=== PATIENT | male | born 1955 | race Caucasian/White ===

== ENCOUNTER 2022-01-03 10:24 | Outpatient (CLI) | payer BC, SELFPAY ==
[2022-01-03 21:54] LABS: Albumin* 4.5 g/dL (3.3-5.0)
[2022-01-03 21:55] LABS: Chloride* 104 mmol/L (96-114); Potassium* 4.5 mmol/L (3.6-5.1); Sodium* 139 mmol/L (135-149)
[2022-01-03 21:57] LABS: Alanine Aminotransferase* 28 U/L (4-50); Alkaline Phosphatase* 62 U/L (40-150); Aspartate Amino Transferase* 27 U/L (12-35); Bilirubin Total* 0.5 mg/dL (0.1-1.5); Blood Urea Nitrogen* 18 mg/dL (7-30); Carbon Dioxide* 27 mmol/L (20-32); Cholesterol* 192 mg/dL (90-199); Creatinine* 0.8 mg/dL (0.5-1.5); Estimated Glomerular Filt Rate 98 ml/min; Glucose* 105 mg/dL (60-115); Total Protein* 7.4 g/dL (6.0-8.3); Triglycerides* 81 mg/dL (40-149)
[2022-01-03 21:58] LABS: Calcium* 9.3 mg/dL (8.4-10.6); HDL Cholesterol* 55 mg/dL (>=40); LDL Cholesterol Calculated 121 mg/dL (<100)
[2022-01-03 22:20] LABS: Creatinine Urine 131.6 mg/dL
[2022-01-03 22:24] LABS: Microalbumin Creatinine Ratio 0 mg/g (0-30); Microalbumin Urine < 1 mg/dL
== END 2022-01-03 10:25 | disposition home or self-care (01) ==
PROVIDERS: PCP Family Medicine; Visit Provider Family Medicine
DX: E78.5 Hyperlipidemia, unspecified (principal); N52.9 Male erectile dysfunction, unspecified; I10 Essential (primary) hypertension
CPT/HCPCS: 80053; 80061; 82043; 82570; 83735

== ENCOUNTER 2023-02-23 07:50 | Outpatient (CLI) | payer BC, SELFPAY | END 2023-02-23 07:51 | disposition home or self-care (01) | PROVIDERS: Visit Provider Family Medicine | DX: Z00.00 Encounter for general adult medical examination without abnormal findings (principal); E78.5 Hyperlipidemia, unspecified; I10 Essential (primary) hypertension; N52.8 Other male erectile dysfunction | CPT/HCPCS: 80053; 80061; 82043; 82570; 84153 ==

== ENCOUNTER 2024-02-29 13:06 | Outpatient (CLI) | payer BC, SELFPAY | END 2024-02-29 13:07 | disposition home or self-care (01) | PROVIDERS: PCP Family Medicine; Visit Provider Family Medicine | DX: Z00.00 Encounter for general adult medical examination without abnormal findings (principal); E78.5 Hyperlipidemia, unspecified; I10 Essential (primary) hypertension; Z12.5 Encounter for screening for malignant neoplasm of prostate; Z11.59 Encounter for screening for other viral diseases; Z13.1 Encounter for screening for diabetes mellitus | CPT/HCPCS: 80053; 80061; 82043; 82570; 83880; 86803; G0103 ==

== ENCOUNTER 2024-03-05 10:34 | Outpatient (CLI) | payer BC, SELFPAY ==
[2024-03-05 11:24] VITALS: BP 122/78; PULSE 95; RESP 18
--- NOTE | 2024-03-05 11:33 | W.PM.STED ---
Stress Test Note Date Date of test: 03/05/24 Providers Primary care provider: Karen Hernández Stress test physician: Serjio Santos Stress Test Note Stress test ordered: Exercise Stress Test Indication for test: Shortness of breath Results discussion: This pleasant 60-year-old gentleman presents for the above test, after discussion the risks benefits side effects he would proceed, pretest EKG shows atrial fibrillation with a controlled ventricular rate of 74 and a blood pressure [address] in [address] No acute [address] wave changes are noted. Cardiac stress test medical history form is reviewed. Patient is exercised for a total time of 6 minutes 2nd and achieved a metabolic equivalent of 7.1 Mets maximum heart rate was 169 with a target predicted of 131%. Conditioning was felt to be moderate review of the test shows no specific evidence of ST wave changes suggestive of ischemia, he had some mild fatigue and shortness of breath but otherwise was normal. Impression: Negative electrographic portion of stress test, conditioning was felt to be moderate, patient is in atrial fibrillation Follow up suggested: Clinical correlation with this test will be needed, Patient will follow-up with Cardiology, he has an echo scheduled. If further testing is needed I would recommend an exercise Myoview test. Patient left this testing facility in good condition.
== END 2024-03-05 10:35 | disposition home or self-care (01) ==
PROVIDERS: PCP Family Medicine; Visit Provider Family Medicine
DX: R06.02 Shortness of breath (principal); I48.91 Unspecified atrial fibrillation
CPT/HCPCS: 93016; 93017

== ENCOUNTER 2024-03-08 10:39 | Outpatient (CLI) | payer BC, SELFPAY | END 2024-03-08 10:40 | disposition home or self-care (01) | LOC: RAD 10:40 | PROVIDERS: PCP Family Medicine; Visit Provider Family Medicine | DX: I48.91 Unspecified atrial fibrillation (principal); R60.0 Localized edema; R06.02 Shortness of breath; R79.89 Other specified abnormal findings of blood chemistry | CPT/HCPCS: 93306 ==

== ENCOUNTER 2024-03-26 10:28 | Outpatient (CLI) | payer BC, SELFPAY ==
--- NOTE | 2024-03-26 10:45 | CRLHL7_ITS ---
For Patients: As a result of the Cures Act, medical imaging exams and procedure reports are released immediately into your electronic medical record. You may view this report before your referring provider. If you have questions, please contact your health care provider. Examination: US abdominal aorta Indication: Abdominal aortic aneurysm screening. Technique: Dhillon scale and color Doppler images of the aorta and common iliac arteries are obtained. Comparison: None Findings: Proximal aorta: 2.6 x 2.3 cm Mid aorta: 1.9 x 2.1 cm Distal aorta: 1.9 x 2.2 cm Right common iliac artery: 1.2 x 1.5 cm Left common iliac artery: 1.2 x 1.4 cm Impression: No abdominal aortic aneurysm. Dictated by Grant Barrios MD @ 03/26/2024 11:40:04 AM (Electronically Signed)
== END 2024-03-26 10:29 | disposition home or self-care (01) ==
LOC: US 10:28
PROVIDERS: PCP Family Medicine; Visit Provider Family Medicine
DX: Z13.6 Encounter for screening for cardiovascular disorders (principal)
CPT/HCPCS: 76706

== ENCOUNTER 2024-06-04 09:18 | Outpatient (CLI) | payer BC, SELFPAY ==
--- NOTE | 2024-06-04 10:12 | PC.NURSE ---
Pt had reported to admitting RN that Eliquis was taken this AM 06/04. Pt verbalized he had spoken to RN in endo unit who verbalized to speak with primary MD who verbalized to continue with eliquis day of colonoscopy. Dr. Dudley notified. Dr. Dudley in to speak with patient and educated on risks of procedure while on blood thinner and encouraged reschedule. Pt verbalized understanding. Pt will follow up with cardiology and reschedule colonoscopy when able to come off eliquis. Pt not happy with reschedule and verbalized frustrations however also verbalized understanding of risk of bleeding and agreed this would not be safe. Pt changed and was dismissed from endo unit at 1010.
== END 2024-06-04 09:19 | disposition home or self-care (01) ==
LOC: OP CLINIC 09:19
PROVIDERS: PCP Family Medicine; Visit Provider Surgery
DX: Z53.09 Procedure and treatment not carried out because of other contraindication (principal); Z79.01 Long term (current) use of anticoagulants